=== PATIENT | male | born 1960 | race Caucasian/White ===

== ENCOUNTER → 2019-02-05 08:44 | Outpatient (CLI) | payer OTHER, SELFPAY ==
--- NOTE | 2019-02-05 08:49 | XR_ITS ---
PROCEDURE: XR CHEST 2V CLINICAL HISTORY: PNEUMONIA Follow-up pneumonia COMPARISON: XR CHEST 2V from 01/24/2019 FINDINGS: The cardiomediastinal silhouette and pulmonary vascularity are within normal limits. Patchy infiltrate is once again noted in the left lung base laterally and is not significantly changed. The remaining lungs are clear. No obvious effusion. No acute bony abnormalities. IMPRESSION: No change left lower lobe pneumonia Dictated by: Jaden Fletcher MD 02/05/2019 09:30 Electronically signed by Jaden Fletcher MD in [facility] 02/05/2019 09:30
== END ==
PROVIDERS: PCP Physician Assistant; Visit Provider Physician Assistant
DX: J18.9 Pneumonia, unspecified organism (principal)
CPT/HCPCS: 71046

== ENCOUNTER → 2019-02-26 13:18 | Outpatient (CLI) | payer OTHER, SELFPAY ==
--- NOTE | 2019-02-26 13:21 | XR_ITS ---
PROCEDURE: XR CHEST 2V CLINICAL HISTORY: PNEUMONIA Follow-up pneumonia COMPARISON: XR CHEST 2V from 01/24/2019 XR CHEST 2V from 02/05/2019 FINDINGS: The cardiomediastinal silhouette and pulmonary vascularity are within normal limits. There are low lung volumes with increased markings in the lower lung zones on both sides consistent with bilateral areas of atelectasis and/or infiltrate. Consolidation previously noted in the lateral aspect of the left lower lobe has slightly improved. No acute bony abnormalities. IMPRESSION: Mixed response with some improvement in the left lateral lower lobe infiltrate with increased markings in the lung bases centrally consistent with atelectasis and/or infiltrate on both sides Dictated by: Jaden Fletcher MD 02/26/2019 14:17 Electronically signed by Jaden Fletcher MD in [facility] 02/26/2019 14:17
== END ==
PROVIDERS: PCP Physician Assistant; Visit Provider Physician Assistant
DX: J18.9 Pneumonia, unspecified organism (principal)
CPT/HCPCS: 71046

== ENCOUNTER 2023-06-29 09:33 | Emergency (ER) | payer OTHER, SELFPAY ==
--- NOTE | 2023-06-29 09:42 | PC.NURSE ---
Dr. Burgess at [facility] for pt eval
[2023-06-29 09:43] VITALS: BP 131/87; PULSE 72; RESP 20; TEMP 36.9; O2SAT 99; BMI 29.5
--- NOTE | 2023-06-29 09:44 | ECG_ITS ---
APPROVED REPORT Exam: Resting ECG HR:70 bpm ECG Measurements Heart Rate 70 AXES DE 193 P 50 QRSd 105 QRS 76 QT 412 T 27 QTc 432 Conclusion SINUS RHYTHM NORMAL ECG Electronically signed by : DARBY MONTANO, 07/01/2023 07:14:49
--- NOTE | 2023-06-29 09:47 | CT_ITS ---
PROCEDURE INFORMATION: Exam: CT Abdomen And Pelvis Without Contrast Exam date and time: 06/29/2023 9:57 AM Age: 62 years old Clinical indication: Abdominal pain; Additional info: Rlq pain, prev diverticulitis, no appy TECHNIQUE: Imaging protocol: Computed tomography of the abdomen and pelvis without contrast. Radiation optimization: All CT scans at this facility use at least one of these dose optimization techniques: automated exposure control; mA and/or kV adjustment per patient size (includes targeted exams where dose is matched to clinical indication); or iterative reconstruction. COMPARISON: CR XR CHEST 2V 02/26/2019 1:28 PM FINDINGS: Liver: Normal. No mass. Gallbladder and bile ducts: Normal. No calcified stones. No ductal dilation. Pancreas: Normal. No ductal dilation. Spleen: Normal. No splenomegaly. Adrenal glands: Normal. No mass. Kidneys and ureters: Tiny nonobstructing bilateral renal calculi. Stomach and bowel: Colonic diverticulosis without evidence of diverticulitis. No bowel obstruction. Appendix: Appendectomy. Intraperitoneal space: Unremarkable. No free air. No significant fluid collection. Vasculature: Unremarkable. No abdominal aortic aneurysm. Lymph nodes: Unremarkable. No enlarged lymph nodes. Urinary bladder: Unremarkable as visualized. Reproductive: Prostatomegaly. Bones/joints: Right total hip arthroplasty. 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 Soft tissues: Unremarkable. IMPRESSION: No acute findings.
--- NOTE | 2023-06-29 09:48 | [facility].EDGENADL ---
Discharge Plan Disposition Patient Disposition: Home, Self-Care Chief Complaint: Abdominal Pain Prescriptions Prescriptions: No Action azithromycin 250 MG tablet 250 mg PO DAILY Qty: 4 0RF Referrals Follow up/Referrals: Georgina Louise APRN [Primary Care Provider] - See instructions Activity Restrictions/Add. Instructions Additional Instructions/Restrictions: At this time it was felt you are safe to be discharged home. If new or worsening symptoms please do not hesitate to return the emergency department. If symptoms persist please follow-up with your family doctor as you are able. Clinical Impressions Clinical Impression: Abdominal pain Instructions Patient Instructions: DI for Acute Abdominal Pain Discharge ED Provider: Guille Burgess General Adult HPI General Chief complaint: Abdominal Pain Stated complaint: pain lower right abd, back, nausea, cold sweats Time Seen by Provider: 06/29/23 09:38 Mode of Arrival: Ambulatory Source of Information: Patient Limitations: No Limitations Description of Symptoms (Recalled from ER Triage Doc. by RN): r abd pain started @ 0830. no nausea or vomiting. last bm, yesterday History of Present Illness HPI narrative: Patient is a 62-year-old male with past medical history of previous diverticulitis, previous appendectomy, presumed contrast allergy secondary to shellfish allergy who presents emergency department for evaluation of abdominal pain. Onset was acute, occurring at 8:30 AM this morning, right lower quadrant. No scrotal pain, no vomiting, not particularly modifiable and is persistent. Patient was unable to have a bowel movement this morning as he normally does daily, he is still passing flatus. No dysuria, no hematuria. It wraps around his right lower quadrant into his flank. No other acute complaints at this time. Related Data Previous Rx's Medication Instructions Recorded azithromycin 250 mg tablet 250 mg PO DAILY #4 tabs 01/24/19 Allergies Allergy/AdvReac Type Severity Reaction Status Date / Time CONTRAST MEDIA, IODINE Allergy Unknown Uncoded 03/12/17 15:31 RELATED SEAFOOD Allergy Unknown Uncoded 03/12/17 15:31 SHELLFISH Allergy Unknown Uncoded 03/12/17 15:31 [facility] Disclaimer: The information contained in this section may have been updated after the patient was seen, as this information can be updated by other users. Surgical History (Updated 06/29/23 @ 10:01 by Madeleine Petersen RN) S/P hip replacement Social History Smoking Status: Smoker, status unknown alcohol intake: never current occupational status: employed Travel in the last 8 weeks: None ROS Obtained: Yes Systems reviewed as appropriate & no additional complaints except as documented Physical Exam General General appearance: alert and in no apparent distress Head Head exam: atraumatic and normocephalic Eye Eye exam: Present PERRL ENT ENT exam: Present mucous membranes moist Neck Neck exam: Present normal inspection Chest Chest inspection: Present normal inspection and symmetric chest wall rise Respiratory Respiratory exam: Present normal lung sounds bilaterally; Absent respiratory distress Cardiovascular Cardiovascular exam: Present regular rate and normal rhythm Abdominal Exam Abdominal exam: Present soft and guarding (Voluntary, right lower quadrant); Absent tenderness Comment: No palpable hernias Extremities Exam Extremities exam: Present normal inspection Neurological Exam Neurological exam: Present alert Psychiatric Psychiatric exam: Present normal affect Skin Skin exam: Present warm and dry Medical Decision Making Mark Inquiry Pt receiving controlled substance: No Vital Signs: 06/29/23 09:43 06/29/23 10:31 06/29/23 11:00 Temperature 98.4 F Temperature Source Oral Pulse Rate 72 60 Pulse Rate [Right] 72 Respiratory Rate 20 18 16 Blood Pressure 107/67 L 111/70 Blood Pressure [Right Arm] 131/87 Blood Pressure Mean 73 81 Blood Pressure Mean [Right Arm] 101 02 Sat by Pulse Oximetry 99 99 Oxygen Delivery Method Room Air Lab Data Lab Results 06/29/23 09:45: WBC 5.8, RBC 5.54, Hgb 16.4, Hct 51.6, MCV 93.2, MCH 29.7, MCHC 31.8, RDW 14.8, Plt Count 281, MPV 8.0, Neut % (Auto) 49.3, Lymph % (Auto) 38.6, [place] % (Auto) 5.9, Eos % (Auto) 4.1, Baso % (Auto) 2.0, Neut # (Auto) 2.9, Lymph # (Auto) 2.2, [place] # (Auto) 0.3, Eos # (Auto) 0.2, Baso # (Auto) 0.1, Sodium 140, Potassium 4.1, Chloride 106, Carbon Dioxide 31 H, Anion Gap 7.1, BUN 21 H, Creatinine 1.10, Estimated Creat Clear 92, Estimated GFR 68, Est GFR ( Amer) 82, Glucose 137 H, Calcium 9.6, Total Bilirubin 0.8, AST 37, ALT 41, Alkaline Phosphatase 122, Total Protein 7.0, Albumin 4.4, Globulin 2.6, Albumin/Globulin Ratio 1.7, Lipase 177 06/29/23 10:52: Urine Color Yellow, Urine Appearance Clear, Urine pH 6.0, Ur Specific [place] 1.025, Urine Protein Negative, Urine Glucose (UA) Negative, Urine Ketones Trace, Urine Blood 1+, Urine Nitrate Negative, Urine Bilirubin Negative, Urine Urobilinogen 0.2, Ur Leukocyte Esterase Negative, Urine RBC 3-5, Urine WBC None, Ur Squamous Epith Cells Occasional, Urine Bacteria Trace 06/29/23 09:45 06/29/23 09:45 Orders (Tests/Meds): ED MEDICATIONS Discontinued Medications Generic Name Dose Route Start Last Admin Trade Name Freq PRN Reason Stop Dose Admin Lactated Ringer's 1,000 mls @ 999 mls/hr 06/29/23 09:43 06/29/23 10:13 Lactated Ringer's 1000 Ml Bag IV 06/29/23 10:43 999 mls/hr .Q1H1M ONE Administration Morphine Sulfate 4 mg 06/29/23 09:43 06/29/23 10:13 Morphine 4mg/Ml Syringe IV 06/29/23 09:44 4 mg ONCE ONE Administration Ondansetron HCl 4 mg 06/29/23 09:43 06/29/23 10:13 Ondansetron 4mg/2ml Vial IV 06/29/23 09:44 4 mg ONCE ONE Administration ORDERS Category Date Time Status CT abdomen pelvis wo con Stat Cat Scan 06/29/23 09:47 Completed CBC w/Auto Diff [Complete Blood Count Auto Diff] Stat Lab 06/29/23 09:45 Completed CMP [Comprehensive Metabolic Panel] Stat Lab 06/29/23 09:45 Completed Lipase Stat Lab 06/29/23 09:45 Completed UA [Urinalysis and Microscopic] Stat Lab 06/29/23 10:52 Completed EKG Request [ECG Request] Stat Y 06/29/23 09:44 Ordered ECG Data Tracing #1: Independently interpreted by me, rate 70, rhythm is regular, axis is normal, no ST elevation in anatomical contiguous leads, QTc 432. Medical Decision Narrative: In summary patient is a 62-year-old male with past medical history described above who presents emergency department for evaluation right lower quadrant abdominal pain. Patient is hemodynamically stable nontoxic-appearing upon arrival, afebrile, appearing in pain. Differential includes recurrent diverticulitis, ureterolithiasis, incomplete bowel obstruction, among others. Workup will be conducted with hematologic labs, urinalysis. Shared decision-making discussion was had at bedside given shellfish allergy including the changes of cross reaction are very low however given the patient has anaphylaxis to shellfish allergy we will proceed with noncontrasted scan at this time. Initial inventions include crystalloid bolus, morphine, IV Tylenol, Zofran. Workup reviewed by me, hematologic labs are nonactionable, no SALUD or critical electrolyte abnormality, no leukocytosis, lipase normal. Urinalysis has 1+ blood and microscopic hematuria which may be reflective of normal variant versus small radiolucent kidney stone. Patient had bowel movement and had significant resolution of symptoms prior to pain medicine administration. CT imaging of abdomen pelvis shows no acute findings. Given that she had decision-making discussion was had at bedside and patient is appropriate for discharge at this time was given return precautions and verbalized understanding. Critical Care Critical Care Time Critical Care Time: No
[2023-06-29 09:54] LABS: Basophils # 0.1 K/mm3 (0-0.2); Eosinophils # 0.2 K/mm3 (0.0-0.4); Eosinophils % 4.1 % (0.1-12.0); Hematocrit 51.6 % (42.0-52.0); Hemoglobin 16.4 g/dL (14.1-18.0); Lymphocytes # 2.2 K/mm3 (0.7-4.5); Lymphocytes % 38.6 % (10-50); Mean Corpuscular HGB Conc 31.8 g/dL (31.8-35.4); Mean Corpuscular Hemoglobin 29.7 pg (27.0-31.2); Mean Corpuscular Volume 93.2 fl (80-94); Monocytes # 0.3 K/mm3 (0.1-1.0); Monocytes % 5.9 % (1.7-9.3); Neutrophils # 2.9 K/mm3 (1.8-7.8); Neutrophils % 49.3 % (37.0-80.0); Platelet Count 281 K/mm3 (142-424); Red Blood Count 5.54 M/mm3 (4.60-6.20); Red Cell Distribution Width 14.8 % (11.5-17.5); White Blood Count 5.8 K/mm3 (4.8-10.8)
--- NOTE | 2023-06-29 09:54 | PC.NURSE ---
Pt to rad
[2023-06-29 10:02] LABS: Chloride 106 mmol/L (98-107); Potassium 4.1 mmoL/L (3.5-5.1); Sodium 140 mmol/L (136-145)
[2023-06-29 10:05] LABS: Alanine Aminotransferase 41 U/L (12-78); Albumin Level 4.4 g/dl (3.5-5.0); Albumin/Globulin Ratio 1.7 (1.1-1.8); Alkaline Phosphatase 122 U/L (38-126); Anion Gap 7.1 mEq/L (5-15); Aspartate Amino Transferase 37 U/L (17-59); Bilirubin,Total 0.8 mg/dl (0.2-1.3); Blood Urea Nitrogen 21 mg/dl (9-20); Calcium 9.6 mg/dl (8.4-10.2); Carbon Dioxide 31 mmol/L (22.0-30.0); Creatinine Clearance Estimated 92 mL/min (50-200); Estimated Glomerular Filt Rate 68 ml/min (>60); GFR (African American) 82 ML/MIN (>60); Globulin 2.6 g/dL (1.3-3.2); Glucose 137 mg/dl (74-100); Lipase 177 U/L (23-300)
[2023-06-29] MEDS: ONDANSETRON 4MG/2ML VIAL 4 MG IV (10:13)
[2023-06-29] MEDS: LACTATED RINGERS 1000ML 1,000 ML 999 ML IV (10:13)
[2023-06-29] MEDS: MORPHINE 4MG/ML SYRINGE 4 MG IV (10:13)
[2023-06-29 10:31] VITALS: BP 107/67; PULSE 72; RESP 18; O2SAT 99
--- NOTE | 2023-06-29 10:45 | PC.NURSE ---
pt reports pain is now a 0/10
[2023-06-29 10:57] LABS: Microscopic, Urine URINE MICROSCOPIC (MICROSCOPIC)
[2023-06-29 10:59] LABS: Appearance,Urine CLEAR (Clear); Bilirubin,Urine Negative (Negative); Blood, Urine 1+ (Negative); Color,Urine YELLOW (Yellow); Glucose,Urine (UA) Negative (Negative); Ketones,Urine TRACE (Negative); Leukocyte Esterase,Urine Negative (Negative); Nitrate,Urine Negative (Negative); Protein,Urine Negative (Negative); Specific Gravity, Urine 1.025 (1.005-1.030); Urobilinogen,Urine 0.2 EU/dl (0.2)
[2023-06-29 11:00] VITALS: BP 111/70; PULSE 60; RESP 16
--- NOTE | 2023-06-29 11:06 | PC.NURSE ---
Dr. Burgess at [facility] to update pt/visitor on results and POC
[2023-06-29 11:10] LABS: Bacteria,Urine Trace /lpf; Squamous Epithelial Cell,Urine Occasional #/hpf (0-5)
[2023-06-29 11:11] VITALS: BP 111/70; PULSE 60; RESP 18; TEMP 36.9; O2SAT 98
== END 2023-06-29 11:27 | disposition home or self-care (01) ==
PROVIDERS: Emergency Provider Emergency Medicine; PCP Nurse Practitioner Family
DX: R10.31 Right lower quadrant pain (principal); R11.0 Nausea; F17.210 Nicotine dependence, cigarettes, uncomplicated
CPT/HCPCS: 74176; 80053; 81001; 83690; 85025; 93005; 96361; 96374; 96375; 99285; J2405